=== PATIENT | male | born 1975 | race Caucasian/White ===

== ENCOUNTER 2016-10-09 15:04 | Emergency (ER) | payer OTHER ==
[~2016-10-09] VITALS: Ht 195.5 cm; Wt 90.7 kg
[~2016-10-09 15:04] MED LIST: ABILIFY1 MG/ML PO; ABILIFY5 MG PO; AMBIEN5 MG PO; BACTRIM DS 8001 TA1 PO; CLEOCIN150 MG PO; COGENTIN1 MG/ML IJ; DEPAKOTE500 M1 PO; Depakote ER500 MG PO; KLONOPIN0.5 MG PO; KLONOPIN1 MG PO; MEDROL DOSEPAK4 MG PO; NKHM; Orphenadrine C100 MG PO; PERCOCET 325 MG1 TA2 PO; PROZAC20 MG PO; PROZAC40 MG PO; RISPERDAL1 MG PO; ULTRAM50 MG PO; VIBRAMYCIN100 MG PO; VICO10300 PO; VOLTAREN50 M1 PO; XANAX0.25 MG PO
[2016-10-09] MEDS ORDERED: ADHD MED (15:10)
[2016-10-09] MEDS ORDERED: PREDNISONE10 MG PO (15:18)
== END 2016-10-09 15:28 | disposition home or self-care (01) ==
LOC: ED 15:04
DX: L30.9 Dermatitis, unspecified (principal); R03.0 Elevated blood-pressure reading, without diagnosis of hypertension; F17.200 Nicotine dependence, unspecified, uncomplicated; Z88.0 Allergy status to penicillin; Z79.899 Other long term (current) drug therapy

== ENCOUNTER 2016-10-20 11:29 | Emergency (ER) | payer OTHER ==
[~2016-10-20] VITALS: Ht 195.5 cm; Wt 90.7 kg
[~2016-10-20 11:29] MED LIST changes: +ADHD MED; +PREDNISONE10 MG PO
[2016-10-20] MEDS ORDERED: ESCITALOPRAM OX20 MG PO (11:41)
[2016-10-20] MEDS ORDERED: PREDNISONE10 MG PO ×3 (12:15→12:21)
== END 2016-10-20 12:22 | disposition home or self-care (01) ==
LOC: ED 11:29
DX: L23.7 Allergic contact dermatitis due to plants, except food (principal); F17.200 Nicotine dependence, unspecified, uncomplicated; Z98.890 Other specified postprocedural states; Z90.89 Acquired absence of other organs; Z79.899 Other long term (current) drug therapy; Z88.0 Allergy status to penicillin; Z88.1 Allergy status to other antibiotic agents; Z91.011 Allergy to milk products

== ENCOUNTER 2016-11-06 10:31 | Emergency (ER) | payer OTHER ==
[~2016-11-06] VITALS: Ht 193 cm; Wt 95.3 kg
[~2016-11-06 10:31] MED LIST changes: +ESCITALOPRAM OX20 MG PO
[2016-11-06] MEDS ORDERED: LIDEX 0.05% CRE15 GM T (10:46)
== END 2016-11-06 11:00 | disposition home or self-care (01) ==
LOC: ED 10:31
DX: L30.9 Dermatitis, unspecified (principal); R03.0 Elevated blood-pressure reading, without diagnosis of hypertension; F17.200 Nicotine dependence, unspecified, uncomplicated; Z88.0 Allergy status to penicillin; Z88.1 Allergy status to other antibiotic agents; Z91.011 Allergy to milk products; Z79.899 Other long term (current) drug therapy

== ENCOUNTER 2018-06-12 11:21 | Emergency (ER) | payer MEDICARE, MEDICAID ==
[~2018-06-12] VITALS: Ht 195.5 cm; Wt 99.8 kg
[~2018-06-12 11:21] MED LIST changes: +LIDEX 0.05% CRE15 GM T
== END 2018-06-12 11:58 | disposition home or self-care (01) ==
LOC: ED 11:21
DX: R53.83 Other fatigue (principal); Z88.0 Allergy status to penicillin; Z88.1 Allergy status to other antibiotic agents; Z91.011 Allergy to milk products; Z79.899 Other long term (current) drug therapy

== ENCOUNTER 2019-02-23 10:16 | Emergency (ER) | payer OTHER ==
[~2019-02-23] VITALS: Ht 195.5 cm; Wt 95.3 kg
[2019-02-23] MEDS ORDERED: LIDEX 0.05% CRE15 GM T (11:25)
[2019-02-23] MEDS ORDERED: MEDROL DOSEPAK4 MG PO (11:25)
== END 2019-02-23 11:38 | disposition home or self-care (01) ==
LOC: ED 10:16
DX: L25.9 Unspecified contact dermatitis, unspecified cause (principal); Z88.0 Allergy status to penicillin; Z88.1 Allergy status to other antibiotic agents; Z91.011 Allergy to milk products; Z79.899 Other long term (current) drug therapy

== ENCOUNTER 2019-03-16 12:08 | Emergency (ER) | payer OTHER ==
[~2019-03-16] VITALS: Wt 95.3 kg
[2019-03-16 12:54] LABS: BILIRUBIN NEGATIVE (NEGATIVE); BLOOD NEGATIVE (NEGATIVE); CLARITY CLEAR (CLEAR); COLOR YELLOW (YELLOW); GLUCOSE TRACE (NEGATIVE); KETONE NEGATIVE (NEGATIVE); LEUKO ESTERASE NEGATIVE (NEGATIVE); NITRITE NEGATIVE (NEGATIVE); PH 5.5 (5.0-9.0); UROBILINOGEN 0.2 E.U./dl (0.2-1.0)
[2019-03-16 13:18] LABS: BACTERIA 1+; MUCOUS TRACE
[2019-03-16] MEDS ORDERED: VIBRAMYCIN100 MG PO (14:01)
[2019-03-16] MEDS ORDERED: NAPROSYN500 MG PO (14:01)
[2019-03-16] MEDS ORDERED: TYLENOL325 M1 PO (14:01)
[2019-03-20 00:01] LABS: GONOCOCCUS BY NAA Negative (Negative)
== END 2019-03-16 14:35 | disposition home or self-care (01) ==
LOC: ED 12:08
PROVIDERS: Emergency Medicine
DX: N45.3 Epididymo-orchitis (principal); N45.2 Orchitis; N45.1 Epididymitis; F17.200 Nicotine dependence, unspecified, uncomplicated; Z79.899 Other long term (current) drug therapy; Z88.0 Allergy status to penicillin; Z91.011 Allergy to milk products

== ENCOUNTER → 2021-11-06 | Outpatient (CLI) | payer OTHER ==
[~2021-11-06] MED LIST changes: +NAPROSYN500 MG PO; +TYLENOL325 M1 PO
== END | disposition home or self-care (01) ==
LOC: ORTHO 01:16
PROVIDERS: ATTEND Orthopaedic Surgery
DX: M25.521 Pain in right elbow (principal)

== ENCOUNTER → 2021-12-14 | Outpatient (CLI) | payer OTHER ==
[2021-12-14 08:56] LABS: TOTAL PROTEIN 7.6 gm/dL (6.4-8.2)
[2021-12-15 05:19] LABS: HBSAG Negative (Negative); HEP B CORE AB, IGM Negative (Negative); HEPATITIS C ANTIBODY 0.1 (0.0-0.9)
[2021-12-17 14:07] LABS: TESTOSTERONE FREE, (DIRECT) 9.9 pg/mL (6.8-21.5)
== END | disposition home or self-care (01) ==
LOC: LAB 08:20
PROVIDERS: ATTEND Physician Assistant
DX: E78.2 Mixed hyperlipidemia (principal); R53.83 Other fatigue; K21.9 Gastro-esophageal reflux disease without esophagitis; F17.200 Nicotine dependence, unspecified, uncomplicated; M25.521 Pain in right elbow

== ENCOUNTER → 2022-03-12 | Outpatient (CLI) | payer OTHER | END | disposition home or self-care (01) | LOC: MRI 08:00 | PROVIDERS: ATTEND Orthopaedic Surgery | DX: M25.421 Effusion, right elbow (principal); M77.11 Lateral epicondylitis, right elbow; M19.021 Primary osteoarthritis, right elbow ==

== ENCOUNTER → 2023-07-07 | Outpatient (CLI) | payer OTHER | END | disposition home or self-care (01) | LOC: RAD 09:06 | PROVIDERS: ATTEND Physician Assistant | DX: M54.9 Dorsalgia, unspecified (principal) ==

== ENCOUNTER → 2024-07-20 | Outpatient (CLI) | payer OTHER | END | disposition home or self-care (01) | LOC: ORTHO 02:01 | PROVIDERS: ATTEND Orthopaedic Surgery | DX: M25.552 Pain in left hip (principal) ==

== ENCOUNTER 2024-11-04 16:34 | Emergency (ER) | payer OTHER ==
[~2024-11-04] VITALS: Ht 195.5 cm; Wt 116.6 kg
[2024-11-04] MEDS ORDERED: methylPREDNISolone sod succ 125 MG VIAL IM ONE (19:10)
[2024-11-04] MEDS ORDERED: Water, Sterile 10 ML VIAL ONE (19:30)
== END 2024-11-04 19:38 | disposition home or self-care (01) ==
LOC: ED 16:34
DX: T63.441A Toxic effect of venom of bees, accidental (unintentional), initial encounter (principal); M79.89 Other specified soft tissue disorders; Z88.0 Allergy status to penicillin; Z88.1 Allergy status to other antibiotic agents; Z79.899 Other long term (current) drug therapy; Z98.890 Other specified postprocedural states; Y92.89 Other specified places as the place of occurrence of the external cause